=== PATIENT | female | born 1950 | race Caucasian/White ===

== ENCOUNTER 2017-01-08 11:05 | Inpatient (IN) | payer OTHER, MEDICAID ==
[~2017-01-08] VITALS: Ht 154.9 cm; Wt 65.8 kg
--- NOTE | 2017-01-08 11:05 | NUR ---
Arrived via BLS ambulance from SNF due to pulled GT.
[2017-01-08 11:09] VITALS: BP_SYST 151
--- NOTE | 2017-01-08 11:15 | NUR ---
ER at bedside examining patient.
--- NOTE | 2017-01-08 11:16 | NUR ---
Pt sent from evaluation and admission for GT placemnt.Pt had GT displaced approximately 1 wk ago. Pt rfused replacement at that time. Pt's family w/ consult from agreed to have GT replaced. Pt has no acute distress noted upon presentation to ED. Pt is nonverbal, answers yes or no questions appropriately.
[2017-01-08] MEDS ORDERED: NACL 0.9% 1,000 ML IV ONE (11:38)
[2017-01-08] MEDS ORDERED: VITA1CAP PO (11:44)
[2017-01-08] MEDS ORDERED: ONDA4TAB5 GT (11:44)
[2017-01-08] MEDS ORDERED: POTA40LI14 GT (11:44)
[2017-01-08] MEDS ORDERED: INSU100V32 SUBCUT (11:44)
[2017-01-08] MEDS ORDERED: LOPE2CAP PO (11:44)
[2017-01-08] MEDS ORDERED: CLOP75TA2 GT (11:44)
[2017-01-08] MEDS ORDERED: COLL100 PO (11:44)
[2017-01-08] MEDS ORDERED: MIDO5TAB20 PO (11:44)
[2017-01-08] MEDS ORDERED: MORP10SO SL (11:44)
[2017-01-08] MEDS ORDERED: LORA2VIA31 IM (11:44)
[2017-01-08] MEDS ORDERED: NITSL SL (11:44)
[2017-01-08] MEDS ORDERED: ACET325T53 GT (11:44)
[2017-01-08] MEDS ORDERED: IPRA3AMP9 INH (11:44)
[2017-01-08] MEDS ORDERED: FAMO20TA8 GT (11:44)
[2017-01-08] MEDS ORDERED: APIX5TAB GT (11:44)
--- NOTE | 2017-01-08 11:48 | NUR ---
Medication reconciliation completed based upon list provided by SNF.
--- NOTE | 2017-01-08 12:05 | NUR ---
Patient will be admitted to care of . Admitted to Med/Surg unit. Will go to room 110A. Belongings list completed. Summary report printed. Report will be given at bedside.
[2017-01-08 12:11] LABS: HEMATOCRIT 44.9 % (36-48); HEMOGLOBIN 14.1 g/dL (12.0-16.0); MEAN CORPUSCULAR HEMOGLOBIN 32 pg (27-31); MEAN CORPUSCULAR HGB CONC 31 % (32-36); MEAN CORPUSCULAR VOLUME 103 fL (79.0-98.0); PLATELET COUNT (AUTO) 99 K/uL (130-430); RED BLOOD CELL COUNT(AUTO) 4.38 MIL/uL (4.2-6.2); RED CELL DISTRIBUTION WIDTH 19.6 % (9.0-15.0)
[2017-01-08 12:21] LABS: WHITE BLOOD COUNT (AUTO) 3.6 K/uL (4.8-10.8)
--- NOTE | 2017-01-08 12:23 | NUR ---
ADMISSION NOTE Received patient from ER via [facility], received report from Antony ROCK. Patient admitted with diagnosis of acute dysphagia. Patient oriented to hospital routine, call light, toileting and safety-patient verbalized understanding.
[2017-01-08 12:31] LABS: ATYPICAL LYMPHOCYTES % 0 % (0-0); BAND % (MANUAL) 0 % (0-6); BASOPHILS % (MANUAL) 0 % (0-2); CALCIUM 8.8 mg/dL (8.4-11.0); EOSINOPHILS % (MANUAL) 2 % (0-7); LYMPHOCYTES % (MANUAL) 12 % (20-46); MONOCYTES % (MANUAL) 6 % (0-11); POTASSIUM 5.3 mmol/L (3.5-5.1)
[2017-01-08 12:35] VITALS: BP_SYST 124
[2017-01-08 12:35] LABS: ALBUMIN 3.8 g/dL (3.4-4.8); TOTAL BILIRUBIN 1.1 mg/dL (0.0-1.0); TOTAL PROTEIN, SERUM 8.1 g/dL (6.4-8.3)
[2017-01-08 12:43] LABS: CREATININE 10.06 mg/dL (0.55-1.30)
--- NOTE | 2017-01-08 13:00 | NUR ---
PATIENT IS AWAKE, ALERT AND ORIENTED. LEFT LEG PARALYSIS, LEFT ARM WEAKNESS. ABLE TO WEAKLY MOVE RIGHT LEG. PATIENT IS AWARE OF WHY SHE IS IN THE HOSPITAL. SPOKE W DR HSU AND ORDERS GIVEN FOR GI LAB PROCEDURE. LUNGS CLEAR, NO EDEMA, NO PRESSURE WOUNDS
--- NOTE | 2017-01-08 13:13 | NUR ---
GI CONSULT Spoke with Maryuri regarding request for consultation with Dr. Kaplan ([phone]) for reason: GT placement, acute dysphagia. Dr. Lopez is currently director validation.
[2017-01-08] MEDS: CLINDAMYCIN 600 MG in D5W 50 ML IV SCH ×3 (14:45→23:04)
--- NOTE | 2017-01-08 15:10 | NUR ---
PATIENT TAKEN TO GI LAB. TELEPHONE CONSENT OBTAINED FROM DAUGHTER WITH PRANAV SMALL.
[2017-01-08 15:17] LABS: INR 1.2 (0.8-1.2); PROTHROMBIN TIME 13.5 SECS (9.5-12.5)
[2017-01-08] MEDS ORDERED: MIDAZOLAM HCL 5 MG/5 ML VIAL ONE (15:21)
[2017-01-08] MEDS: fentaNYL CITRATE/PF 100 MCG/2 ML AMP ONE ×2 (17:29→17:33)
[2017-01-08] MEDS: MIDAZOLAM HCL 5 MG/5 ML VIAL ONE ×2 (17:31→17:35)
--- NOTE | 2017-01-08 18:25 | NUR ---
PATIENT IS STILL IN GI LAB. WILL GIVE REPORT TO VICTOR M ROCK
--- NOTE | 2017-01-08 18:31 | NUR ---
PT JUST RETURNED FROM GI LAB
[2017-01-08 20:25] VITALS: BP_SYST 143
--- NOTE | 2017-01-08 20:25 | NUR ---
INITIAL NOTES: PATIENT IN BED,RESTING QUITELY WITH EYES CLOSE. OPENS EYES WITH LOUD CALLING HER NAME. IVF INFUSING TKO, SITE CLEAR, AV SHUNT TO LEFT UPPER ARM WITH STRONG BRUIT /THRILL. VITAL SIGNS TAKEN ALL STABLE. CALL LIGHT WITHIN REACH. BED IN LOW POSITION. TURN ON BED ALARM. SIGN NO BP/BLOOD DRAW PLACED OVER HEADF WALL. WILL MONITOR CLOSELY. ABDOMINAL BINDER ON. NEW GT TUBE CLAMPED.
--- NOTE | 2017-01-08 22:30 | NUR ---
HYGIENE: BED BATH DONE. HELPS IN TURNING SLOWLY.FOLLOWS SIMPLE COMMANDS ,ANSWERS QUESTIONS BY NODDING HEAD . NEW PEG TUBE DRESSINGS WITH OLD BLOOD.GT TUBE CLAMPED. ABDOMINAL BINDER ON.PHOTO ON SKIN PROBLEM DONE. SEE CHART. SCRATCHING ABDOMEN AND PERINEAL AREAS.INSTRUCTED NOT TO.
[2017-01-09] VITALS (7 sets, daily range): BP systolic 111–148
--- NOTE | 2017-01-09 00:10 | NUR ---
ROUNDS: PATIENT RESTING WITH EYES CLOSE. MORE BLANKETS ADDED.
--- NOTE | 2017-01-09 02:00 | NUR ---
ROUNDS: TURNED TO SIDE. BINDER ON.
--- NOTE | 2017-01-09 02:20 | NUR ---
CALLED [facility] ABOUT WHAT TUBE FEEDING AND DIALYSIS SCHEDULE. SPOKE TO RONALD SAID HAD NEPHRO TUBE FEEDING BUT WAS DISCONTINUED,HEMODIALYSIS WAS DISCONTINUED WELL DUE TO CODE STATUS. PT. IS DNR BY GERARDO.
--- NOTE | 2017-01-09 03:00 | NUR ---
INCONTINENT OF LOOSE STOOL. GABO CARE DONE.
--- NOTE | 2017-01-09 05:30 | NUR ---
GABO CARE DONE DUE TO INCONTINENT OF STOOL.
[2017-01-09] MEDS: CLINDAMYCIN 600 MG in D5W 50 ML IV SCH ×3 (05:37→17:33)
--- NOTE | 2017-01-09 06:30 | NUR ---
CLOSING: BLOOD SUGAR CHECKED 140MM/DL. GT TUBE FEEDING DRESSING WITH OLD BLOOD STAIN. BINDER ON.ALL NEEDS WERE ATTENDED.APHASIC. NO ACUTE DISTRESS.
--- NOTE | 2017-01-09 07:00 | NUR ---
CALLED DIETARY FOR CONSULT ,SPOKE TO MARCOS SAID OUTSIDE CONTRACTOR SALES IS COMMING AT 0900HR. TOLD HER PATIENT NEED TO BE SEEN TO EVALUATE WHAT FEEDING TO START SINCE IT IS NEWLY PLACED G TUBE. SAID WILL INFORM STRAP STITCHER TO CALL OUTSIDE CONTRACTOR SALES COME EARLY
[2017-01-09 07:20] LABS: LYMPHOCYTES # (AUTO) 0.2 K/uL (1.0-5.5); MONOCYTES # (AUTO) 0.1 K/uL (0.0-1.0)
[2017-01-09 07:29] LABS: INR 1.3 (0.8-1.2); PROTHROMBIN TIME 14.6 SECS (9.5-12.5)
[2017-01-09 07:31] LABS: BASOPHILS % (AUTO) 0.3 % (0.0-2.0); HEMATOCRIT 44.6 % (36-48); LYMPHOCYTES % (AUTO) 4.1 % (20.5-51.5); MEAN CORPUSCULAR HEMOGLOBIN 33 pg (27-31); MEAN CORPUSCULAR HGB CONC 31 % (32-36); MEAN CORPUSCULAR VOLUME 105 fL (79.0-98.0); MONOCYTES % (AUTO) 2.8 % (1.7-9.3); NEUTROPHILS # (AUTO) 3.9 K/uL (1.8-7.7); NEUTROPHILS % (AUTO) 92.8 % (40.0-70.0); PLATELET COUNT (AUTO) 75 K/uL (130-430); RED BLOOD CELL COUNT(AUTO) 4.24 MIL/uL (4.2-6.2); RED CELL DISTRIBUTION WIDTH 20.3 % (9.0-15.0); WHITE BLOOD COUNT (AUTO) 4.2 K/uL (4.8-10.8)
[2017-01-09] MEDS ORDERED: ONDANSETRON HCL 4 MG/2 ML VIAL IVP PRN (08:45)
[2017-01-09] MEDS ORDERED: MAGNESIUM SULFATE 50 ML IV PRN (08:45)
[2017-01-09] MEDS ORDERED: ACETAMINOPHEN 325 MG TABLET GT PRN (08:45)
[2017-01-09] MEDS ORDERED: ZOLPIDEM TARTRATE 5 MG TABLET PO PRN (08:45)
[2017-01-09] MEDS ORDERED: LORazepam 2 MG/ML VIAL IVP PRN (08:45)
[2017-01-09] MEDS ORDERED: DOCUSATE SODIUM 100 MG CAPSULE PO PRN (08:45)
[2017-01-09] MEDS ORDERED: IPRATROPIUM/ALBUTEROL SULFATE 3 ML AMPUL.NEB INH PRN (08:45)
[2017-01-09] MEDS ORDERED: POTASSIUM CHLORIDE 10 MEQ TAB.PRT.SR PO PRN (08:45)
[2017-01-09] MEDS ORDERED: ACETAMINOPHEN 325 MG TABLET PO PRN (08:45)
[2017-01-09] MEDS ORDERED: MORPHINE 2 MG/ML INJ. SYRINGE IVP PRN (08:45)
[2017-01-09] MEDS ORDERED: DEXTROSE 50% JECT 50 ML DISP.SYRIN IVP PRN (08:45)
[2017-01-09] MEDS ORDERED: HEPARIN SODIUM,PORCINE 5000 UNITS/ML VIAL SUBCUT SCH (09:00)
--- NOTE | 2017-01-09 09:06 | NUR ---
Nutrition Update Vladimir Scale 11 noted. Pt admitted for dysphagia. Diet: N/A BMI: 27.8 kg/m2 RD to follow per nutrition care standards.
[2017-01-09] MEDS: METOCLOPRAMIDE HCL 10 MG/2 ML VIAL IVP SCH ×2 (09:19→17:00)
[2017-01-09] MEDS: PANTOPRAZOLE SODIUM 40 MG/VIAL (PROTONIX) IVP SCH (09:19)
[2017-01-09] MEDS: HYDROcodone/ACETAMIN 5-325 MG TAB (NORCO/ VICODIN) PO SCH ×3 (09:20→20:57)
--- NOTE | 2017-01-09 11:40 | NUR ---
Note: Went in with student to check blood sugars and found patient unresponsive. Vital signs wnl but patient would not react to name or stimuli. Blood sugar checked and it was 80. Oxygen was administered and Dr. Joe mckenzie. Charge nurse spoke to MD and told him the situation and he said to give a D50 push. orders were noted and carried out. Patient is a DNR so comfort measures only are to be followed.
[2017-01-09] MEDS ORDERED: DEXTROSE 50% JECT 50 ML DISP.SYRIN IVP ONE (12:00)
--- NOTE | 2017-01-09 12:00 | NUR ---
Blood Sugar recheck Current blood sugar after D50 push is 234. Patient is still not responsive. Will continue to monitor.
--- NOTE | 2017-01-09 14:00 | NUR ---
Note: Patient is resting in bed. Patient is still sleeping. Hard to arouse. vital signs are stable. Spoke with Valery, patients daughter, and they said that they wanted dialysis to continue again. Dr. Diaz was paged and informed. He ordered consult with marriage counselor minister. Call light in reach, bed in lowest position, and will continue to monitor.
--- NOTE | 2017-01-09 14:06 | NUR ---
NEPHROLOGY CONSULT Spoke with Leonora regarding request for consultation with Dr. Martinez ([phone]) for reason: renal failure. Dr. Thao is currently pulmonary physician.
--- NOTE | 2017-01-09 14:46 | NUR ---
Wound Care Wound care done with wound care nurse. Periarea has reddness, clean and apply barrier moisture cream to it. Saccrum also has redness, clean and apply barrier moisture. No open wounds. Right medial heel, callous and black but dry and not open. Barrier cream applied and left open to air.
--- NOTE | 2017-01-09 14:46 | NUR ---
WOUND EVALUATION: Wound Consult received from Dr. Diaz. Thank you, Dr. Diaz, for the consult. Patient received in a Johnny Bed with an IsoFlex JACQUI mattress, low air loss therapy was initiated. Patient was sleeping, arouses with some effort, nonverbal, nods to questions asked. Patient is unable to turn in bed independently. Vladimir Score is an 11. Past Medical History: Coronary Artery Disease, End-Stage Renal Disease, Diabetes Mellitus, and Chronic GI Upset Dialysis Dependent, End-Stage Renal Disease, Dysphagia, Diabetes Mellitus, Neuropathy, Nephropathy, Chronic Pain, and Anorexia. Recent Labs: WBC 4.2, RBC 4.24, Hemoglobin 14.0, Hematocrit 44.6, Patelets 75, Potassium 5.3, Chloride 94, BUN 11, Creatinine 10.06, GFR 4, POC Glucose 234, PT 14.6, INR 1.3. MRSA Screen in progress. Intrinsic factors that delay wound healing: Coronary Artery Disease, Diabetes Mellitus. Extrinsic factors that delay wound healing: Decreased mobility. Microbiology: Wound Assessment: 1) Right Medial Heel: Chronic pressure ulcer of prior unknown stage, present on admission. Wound bed is unseen, with 100% black tissue. No odor, no drainage, miguelito-wound callused. Measures 1.3 cm x 1.4 cm. Recommend: Cover involved area with foam dressing. Continue needed to monitor every shift. Elevate, offload and float bilateral heels with pillows lengthwise at all times. 2) Left Great Toe: Chronic wound with 100% black eschar, present on admission. No odor, no drainage. Dry, stable. Measures 0.7 cm x 0.7 cm. Recommend: No dressing needed. Continue to monitor site every shift. 3) Left Lateral Fifth Toe: Chronic wound with 100% black eschar, present on admission. No odor, no drainage. Dry, stable. Measures 0.8 cm x 0.7 cm. 4) Left Fifth Metatarsal Head, Lateral Aspect: Chronic wound with 100% black eschar, present on admission. No odor, no drainage. Measures 1.0 cm x 0.8 cm. 5) Left Lateral Ankle: Chronic wound, present on admission. Non-intact skin area has 100% pink tissue. No odor, no drainage. Measures 1.4 cm x 1.4 cm. Recommend: No dressing needed. Elevate, offload and float bilateral heels with pillows twice at all times. Continue to monitor sites every shift. 6) Perineal and Buttocks Areas: Redness from IAD, present on admission. No odor, no drainage. Recommend: Cleanse involved areas with mild soap and water. Pat dry. Apply moisture barrier cream to involved areas 4 times a day, and as needed for soiling. Also recommend: Reposition patient [id number] only every 2 hours with pillow support and off-load pressure areas with pillows for pressure re-distribution. Offload, elevate and float bilateral heels with pillows lengthwise at all times. Perform skin care and monitor skin integrity Q shift. Use moisture barrier cream on buttocks and other moisture susceptible areas QID and as needed for soiling. Maintain patient on a low air-loss mattress.
--- NOTE | 2017-01-09 15:20 | NUR ---
Dr. Keesha ALONSO in to see patient. Ordered dialysis. order printed and given to household manager.
--- NOTE | 2017-01-09 16:00 | NUR ---
Patient in dialysis
--- NOTE | 2017-01-09 16:10 | NUR ---
Nutrition Note Nutrition Consult (Vladimir score of 11) received 01/09/17 3309. Pt was seen and assessed by RD earlier today. Please refer to Nutrition Assessment for details. RD to continue to follow per nutrition care standards.
[2017-01-09] MEDS: INSULIN ASPART 100 UNITS/ML, 10 ML VIAL (NovoLOG) SUBCUT PRN (17:37)
--- NOTE | 2017-01-09 18:17 | NUR ---
Closing Note: Patient is resting comfortably in bed. No s/s of distress or sob. patient is awake. Patient is still in Dialysis. IV is patent. Low air mattress is on. Call light in reach, bed in lowest position, and will continue to monitor.
--- NOTE | 2017-01-09 18:50 | NUR ---
Dialysis Dialysis is done. 2 L removed. Blood pressure is stable. Patient tolerated well.
--- NOTE | 2017-01-09 20:00 | NUR ---
PM Shift Assessment Received patient lying in bed, opens eyes and nods but non-verbal. Assessment complete, vital signs sable. G-tube noted to abdomen, feeding infusing well, 40mL residual noted at this time, will monitor and increase to gaol rate per MD order. Abdominal binder noted to abdomen. IV noted to right hand, saline locked at this time, flushes well, no redness or swelling noted to IV site. Plan of care updated on board. Patient is not able to verbally make needs known. All fall and safety precautions in place, will continue to monitor closely for change in patient status.
--- NOTE | 2017-01-09 22:17 | NUR ---
RN Rounds Patient is resting quietly in bed, no acute distress noted. Blood sugar was assessed, no insulin provided per sliding scale. Patient was cleaned, repositioned with pillow support and made comfortable in bed. Tube feeding infusing well. All fall and safety precautions in place, will continue to monitor closely.
[2017-01-10] VITALS (7 sets, daily range): BP systolic 111–127
--- NOTE | 2017-01-10 00:24 | NUR ---
RN Rounds Patient is resting quietly in bed, no acute distress noted. Vital signs stable, no non-verbal signs of pain noted at this time. Scheduled IV antibiotics administered and infusing well. All safety precautions in place, will continue to monitor closely.
[2017-01-10] MEDS: CLINDAMYCIN 600 MG in D5W 50 ML IV SCH ×4 (00:37→18:34)
[2017-01-10] MEDS: METOCLOPRAMIDE HCL 10 MG/2 ML VIAL IVP SCH ×3 (00:37→17:00)
--- NOTE | 2017-01-10 02:35 | NUR ---
RN Rounds Patient noted to be dry heaving and had an episode of vomiting. She was cleaned, oral care provided, and made comfortable in bed with pillow support. Heels remain elevated on pillow. Tube feeding residual noted to be 5mL at this time. Head of bed is elevated. All safety precautions in place, will continue to monitor closely.
--- NOTE | 2017-01-10 04:33 | NUR ---
RN Rounds Patient is resting quietly in bed, no acute distress noted. Tube feeding was increased per MD order @0330, 5mL residual noted, now infusing at 40mL/hour, patient tolerating well. Patient was repositioned and made comfortable in bed. Heels remain elevated with pillow support. All safety precautions in place, will continue to monitor.
--- NOTE | 2017-01-10 07:13 | NUR ---
Closing Notes Patient is resting quietly in bed, no acute distress noted. Tolerating tube feeding well. Patient is stable, all needs met throughout shift. SBAR report was endorsed to AM nurse at bedside.
[2017-01-10 07:44] LABS: BASOPHILS % (AUTO) 0.4 % (0.0-2.0); EOSINOPHILS % (AUTO) 0.2 % (0.0-4.0); HEMATOCRIT 40.8 % (36-48); HEMOGLOBIN 13.1 g/dL (12.0-16.0); LYMPHOCYTES # (AUTO) 0.4 K/uL (1.0-5.5); LYMPHOCYTES % (AUTO) 8.6 % (20.5-51.5); MEAN CORPUSCULAR HEMOGLOBIN 34 pg (27-31); MEAN CORPUSCULAR HGB CONC 32 % (32-36); MEAN CORPUSCULAR VOLUME 105 fL (79.0-98.0); MONOCYTES # (AUTO) 0.5 K/uL (0.0-1.0); MONOCYTES % (AUTO) 11.3 % (1.7-9.3); NEUTROPHILS # (AUTO) 3.8 K/uL (1.8-7.7); NEUTROPHILS % (AUTO) 79.5 % (40.0-70.0); PLATELET COUNT (AUTO) 66 K/uL (130-430); RED CELL DISTRIBUTION WIDTH 19.5 % (9.0-15.0); WHITE BLOOD COUNT (AUTO) 4.7 K/uL (4.8-10.8)
[2017-01-10 08:03] LABS: CREATININE 5.99 mg/dL (0.55-1.30); POTASSIUM 3.1 mmol/L (3.5-5.1)
[2017-01-10] MEDS: HYDROcodone/ACETAMIN 5-325 MG TAB (NORCO/ VICODIN) PO SCH ×3 (09:00→21:52)
[2017-01-10] MEDS: PANTOPRAZOLE SODIUM 40 MG/VIAL (PROTONIX) IVP SCH (11:04)
--- NOTE | 2017-01-10 11:06 | NUR ---
Morning shift summary: patient reposition and assessment of skin. Doctor Joe jo. Will follow up with Doctor Martinez as requested by for dialysis order.
--- NOTE | 2017-01-10 13:35 | NUR ---
ROUNDS TO PATIENT. REPOSITIONING COMPLETE. PATIENT SAID A COMPLETE SENTENCE, "WILL YOU PLEASE COVER ME UP. "
[2017-01-10] MEDS ORDERED: POTASSIUM CHLORIDE 20 MEQ TAB.PRT.SR GT ONE (14:15)
--- NOTE | 2017-01-10 14:41 | NUR ---
PATIENT ROUNDS. GIVEN 20MEQ OF K ORDERED. CALL TO LAND SALES AGENT FOR DOCTOR JEAN. DOCTOR MARY PAGED PER [employer] HAND.
[2017-01-10] MEDS: INSULIN ASPART 100 UNITS/ML, 10 ML VIAL (NovoLOG) SUBCUT PRN (18:39)
--- NOTE | 2017-01-10 20:00 | NUR ---
PM Shift Assessment Received patient lying in bed, opens eyes and nods but does not answer questions. Assessment complete. G-tube noted to abdomen, feeding infusing well, 40mL/hr, 10mL residual noted at this time, rate was increased to 50mL/hr towards goal rate per MD order, will monitor for tolerance. Abdominal binder noted to abdomen. IV noted to right hand, saline locked at this time, flushes well, no redness or swelling noted to IV site. Patient was repositioned and made comfortable in bed, heels elevated with pillow support. Plan of care updated on board. Patient is not able to verbally make needs known. All fall and safety precautions in place, will continue to monitor closely for change in patient status.
--- NOTE | 2017-01-10 20:18 | NUR ---
Handoff report with noc nurse. Notified that patient has orders for dialysis and wash house worker aware. Patient residual and accucheck with tube feeding currently at 40ml/hour.
--- NOTE | 2017-01-10 22:21 | NUR ---
RN Rounds Patient is resting quietly in bed, no acute distress noted. Blood sugar was assessed, no insulin provided per sliding scale. Oral care provided for comfort. Tube feeding infusing well. All fall and safety precautions in place, will continue to monitor closely.
--- NOTE | 2017-01-11 00:10 | NUR ---
Transfer of Care Patient is resting quietly in bed, no acute distress noted. G-tube feeding infusing at 50mL/hr, endorsed to increase to goal rate per MD order. Patient is stable at this time, no non-verbal signs of pain or shortness of breath noted. SBAR report endorsed to RN.
--- NOTE | 2017-01-11 00:10 | NUR ---
NOTES: took over care from Bonnie, report given.
[2017-01-11] MEDS: CLINDAMYCIN 600 MG in D5W 50 ML IV SCH ×4 (00:38→17:28)
--- NOTE | 2017-01-11 00:45 | NUR ---
ROUNDS: pt. checked ,vomitted, mucus all over her mouth, face and chest. complete am care done with PRASANNA Deng. rechecked residual from g tube feeding less than 5 cc. IV site dressing changed, IV kept TKO. pt, incontinent of urine and stool, pericare done, some redness on perianal area, cream applied. O2 @ 2l/nc. pt. awake, slurred speech ,nods head when asked something, follows simple commands, noted weakness on left side. bruises on both upper extremities. left foot with toes amputated.continue g tube feed @ 50 ml/hr.
[2017-01-11] MEDS: METOCLOPRAMIDE HCL 10 MG/2 ML VIAL IVP SCH ×3 (01:04→16:35)
--- NOTE | 2017-01-11 03:00 | NUR ---
NOTES: pt. sleeping when checked. kept on semi fowlers position to prevent from vomiting. in no acute distress. on special mattress.
[2017-01-11 04:00] VITALS: BP_SYST 112
--- NOTE | 2017-01-11 06:00 | NUR ---
NOTES: pt. remain sleeping when checked. appears in no acute distress. IVF patent .
--- NOTE | 2017-01-11 06:45 | NUR ---
CLOSING NOTES: pt. unable to scan for blood sugar checked, will try later, off IV for blood draw. Av shunt on left arm with good bruit. G tube feed @ 40 ml/hr. for further care and observation.
--- NOTE | 2017-01-11 07:25 | NUR ---
endorsed pt. to incoming shift with nurse Field
[2017-01-11 07:31] LABS: EOSINOPHILS % (AUTO) 0.2 % (0.0-4.0); MONOCYTES # (AUTO) 0.4 K/uL (0.0-1.0)
[2017-01-11 07:36] LABS: BASOPHILS # (AUTO) 0.1 K/uL (0.0-0.2); BASOPHILS % (AUTO) 2.2 % (0.0-2.0); HEMATOCRIT 42.5 % (36-48); HEMOGLOBIN 13.5 g/dL (12.0-16.0); LYMPHOCYTES # (AUTO) 0.6 K/uL (1.0-5.5); LYMPHOCYTES % (AUTO) 9.2 % (20.5-51.5); MEAN CORPUSCULAR HEMOGLOBIN 33 pg (27-31); MEAN CORPUSCULAR HGB CONC 32 % (32-36); MEAN CORPUSCULAR VOLUME 105 fL (79.0-98.0); MONOCYTES % (AUTO) 6.3 % (1.7-9.3); NEUTROPHILS % (AUTO) 82.1 % (40.0-70.0); PLATELET COUNT (AUTO) 56 K/uL (130-430); RED BLOOD CELL COUNT(AUTO) 4.05 MIL/uL (4.2-6.2); RED CELL DISTRIBUTION WIDTH 19.5 % (9.0-15.0); WHITE BLOOD COUNT (AUTO) 6.1 K/uL (4.8-10.8)
[2017-01-11 07:40] LABS: CREATININE 6.93 mg/dL (0.55-1.30); POTASSIUM 4.3 mmol/L (3.5-5.1)
[2017-01-11] MEDS: INSULIN ASPART 100 UNITS/ML, 10 ML VIAL (NovoLOG) SUBCUT PRN ×2 (07:49→12:21)
--- NOTE | 2017-01-11 07:56 | NUR ---
Opening Note Report received form Christel MARY nurse. Patient is in stable condition currently resting in bed. Patient is awake. However is nonverbal. IV is on the right hand 22g currently saline locked. Current blood sugar is 169, covered with 2 units. G-tube is running Diabeticsource @40ml/hr. Patient is due for HD today. Will continue to monitor.
[2017-01-11 08:00] VITALS: BP_SYST 114
[2017-01-11] MEDS: PANTOPRAZOLE SODIUM 40 MG/VIAL (PROTONIX) IVP SCH (09:00)
[2017-01-11] MEDS: HYDROcodone/ACETAMIN 5-325 MG TAB (NORCO/ VICODIN) PO SCH ×3 (09:01→21:01)
--- NOTE | 2017-01-11 10:00 | NUR ---
Rounds Patient is currently resting in bed. No signs of distress noted.
--- NOTE | 2017-01-11 12:02 | NUR ---
Rounds Patient is currently receiving HD.
--- NOTE | 2017-01-11 12:17 | NUR ---
WOUND RE-EVALUATION: Patient received in a Davenport Bed with an IsoFlex JACQUI mattress, with low air loss therapy. Patient was sleeping, arouses with some effort, nonverbal, nods to questions asked. Patient is unable to turn in bed independently. Vladimir Score was a 16. MRSA Screen negative. Intrinsic factors that delay wound healing: Coronary Artery Disease, Diabetes Mellitus. Extrinsic factors that delay wound healing: Decreased mobility. Skin care performed by dayshift nurse. Assessment provided by PRANAV Field. Wound Assessment: 1) Right Medial Heel: Chronic pressure ulcer of prior unknown stage, present on admission. Wound bed is unseen, with 100% black tissue. No odor, no drainage, miguelito-wound callused. Recommend continue: Cover involved area with foam dressing. Continue needed to monitor every shift. Elevate, offload and float bilateral heels with pillows lengthwise at all times. 2) Left Great Toe: Chronic wound with 100% black eschar, present on admission. No odor, no drainage. Dry, stable. Recommend continue: No dressing needed. Continue to monitor site every shift. 3) Left Lateral Fifth Toe: Chronic wound with 100% black eschar, present on admission. No odor, no drainage. Dry, stable. 4) Left Fifth Metatarsal Head, Lateral Aspect: Chronic wound with 100% black eschar, present on admission. No odor, no drainage. 5) Left Lateral Ankle: Chronic wound, present on admission. Non-intact skin area has 100% pink tissue. No odor, no drainage. Recommend continue: No dressing needed. Elevate, offload and float bilateral heels with pillows twice at all times. Continue to monitor sites every shift. 6) Perineal and Buttocks Areas: Redness from IAD, present on admission. No odor, no drainage. Recommend continue: Cleanse involved areas with mild soap and water. Pat dry. Apply moisture barrier cream to involved areas 4 times a day, and as needed for soiling. Also recommend continue: Reposition patient [id number] only every 2 hours with pillow support and off-load pressure areas with pillows for pressure re-distribution. Offload, elevate and float bilateral heels with pillows lengthwise at all times. Perform skin care and monitor skin integrity Q shift. Use moisture barrier cream on buttocks and other moisture susceptible areas QID and as needed for soiling. Maintain patient on low air-loss therapy.
[2017-01-11 12:27] VITALS: BP_SYST 106
--- NOTE | 2017-01-11 12:38 | NUR ---
DISCHARGE PLANNING DC order back to SNF. Faxed SNF referral to [phone] [phone]. Meanwhile; Called [facility] [phone] spoke with Jo in admitting facility full no beds available. [facility] [phone] spoke who directed me to central office [phone], called spoke with Nely who stated facility has no computer terminal operator beds available at this time. [facility] [phone] spoke with Yesy No computer terminal operator beds available at this time. [facility] [phone] spoke with Diana no computer terminal operator beds available. Addendum: 01/11/17 at 1303 by Mariela OSULLIVAN Spoke with patient daughter Valery Carcamo [phone] who was made aware of attempts made to find SNF placement near [facility]. Valery understood and was agreeable with patient discharge back to [facility] today. Valery did not need to be called with time ambulance will be arranged. Spoke with Kaycee at [facility] patient assigned to room 11B RN to report [phone] bed available anytime. PRANAV Field made aware. Called [facility] [phone] spoke with Elizabeth arranged BLS transport belt picker 3-3:30pm. Placed transportation packet in nurses station. Addendum: 01/11/17 at 1402 by Mariela OSULLIVAN Plan to discharge back to [facility] tomorrow. Called [facility] ambulance placed BLS transport on will call. RN made aware.
--- NOTE | 2017-01-11 14:03 | NUR ---
Rounds Patient is currently sleeping in bed. No signs of distress noted.
--- NOTE | 2017-01-11 16:10 | NUR ---
Rounds patient is currently resting in bed. No signs of distress noted.
[2017-01-11 16:37] VITALS: BP_SYST 126
--- NOTE | 2017-01-11 18:43 | NUR ---
Closing Note Patient is resting in bed. G-tube is running Diabeticsource @ 40ml/hr. Iv is on the right hand 22g running NS@tko. Bed is in low position. Will give report to the oncoming nurse.
--- NOTE | 2017-01-11 19:45 | NUR ---
ROUNDS PATIENT RESTING COMFORTABLY IN BED, NOT IN DISTRESS, VITALS STABLE, NO SIGNS OF ANY [place] AND DISCOMFORT NOTED. ASSESSMENT DONE AND DOCUMENTED. SEE FLOWSHEET. NEEDS ATTENDED TO. REPOSITIONED AND MADE COMFORTABLE. SAFETY AND FALL PRECAUTION MEASURES IN PLACED. BED IN LOW AND LOCKED POSITION. CALL LIGHT PLACED WITHIN REACH.
[2017-01-11] MEDS: LACTOBACILLUS RHAMNOSUS GG 1 CAP CAPSULE PO SCH (20:59)
--- NOTE | 2017-01-11 21:00 | NUR ---
MEDICATION DUE MEDICATIONS GIVEN PER G TUBE, TOLERATED WELL. WILL CONTINUE TO MONITOR.
[2017-01-11 23:30] VITALS: BP_SYST 130
--- NOTE | 2017-01-12 | NUR ---
PATIENT RESTING: Patient resting quietly. No acute distress noted. Vital signs within normal range.
[2017-01-12] MEDS: METOCLOPRAMIDE HCL 10 MG/2 ML VIAL IVP SCH ×2 (01:00→09:21)
--- NOTE | 2017-01-12 02:15 | NUR ---
ROUNDS PATIENT ASLEEP, VITALS STABLE, WILL CONTINUE TO MONITOR.
[2017-01-12 03:48] VITALS: BP_SYST 115
--- NOTE | 2017-01-12 04:00 | NUR ---
PATIENT RESTING: Patient resting quietly. No acute distress noted. Vital signs within normal range.
[2017-01-12] MEDS: CLINDAMYCIN 600 MG in D5W 50 ML IV SCH ×2 (05:28→11:52)
--- NOTE | 2017-01-12 06:50 | NUR ---
CLOSING NOTES PATIENT AWAKE, NOT IN DISTRESS, VITALS STABLE. ALL NEEDS ATTENDED TO. SAFETY MEASURES MAINTAINED. BED IN LOW AND LOCKED POSITION. CALL LIGHT PLACED WITHIN REACH.
[2017-01-12 07:09] LABS: CALCIUM 8.6 mg/dL (8.4-11.0); CREATININE 4.42 mg/dL (0.55-1.30); POTASSIUM 3.9 mmol/L (3.5-5.1)
[2017-01-12 07:30] VITALS: BP_SYST 115
[2017-01-12 07:40] LABS: BASOPHILS % (AUTO) 0.5 % (0.0-2.0); EOSINOPHILS # (AUTO) 0.1 K/uL (0.0-0.4); EOSINOPHILS % (AUTO) 1.6 % (0.0-4.0); HEMATOCRIT 42.2 % (36-48); HEMOGLOBIN 13.3 g/dL (12.0-16.0); LYMPHOCYTES # (AUTO) 0.5 K/uL (1.0-5.5); LYMPHOCYTES % (AUTO) 7.6 % (20.5-51.5); MEAN CORPUSCULAR HEMOGLOBIN 33 pg (27-31); MEAN CORPUSCULAR HGB CONC 31 % (32-36); MEAN CORPUSCULAR VOLUME 106 fL (79.0-98.0); MONOCYTES # (AUTO) 0.4 K/uL (0.0-1.0); MONOCYTES % (AUTO) 5.7 % (1.7-9.3); NEUTROPHILS # (AUTO) 5.6 K/uL (1.8-7.7); NEUTROPHILS % (AUTO) 84.6 % (40.0-70.0); PLATELET COUNT (AUTO) 65 K/uL (130-430); RED BLOOD CELL COUNT(AUTO) 3.99 MIL/uL (4.2-6.2); RED CELL DISTRIBUTION WIDTH 18.9 % (9.0-15.0); WHITE BLOOD COUNT (AUTO) 6.6 K/uL (4.8-10.8)
--- NOTE | 2017-01-12 08:00 | NUR ---
Opening Note Report received from Anni ROCK. Patient is in stable condition and currently sleeping in bed. Iv is on the right hand currently running NS @ tko. G-tube is running Diabeticsource @40ml/hr. O2 is 93% on 2l via NC. Will continue to monitor.
[2017-01-12 08:07] VITALS: BP_SYST 104
[2017-01-12] MEDS: PANTOPRAZOLE SODIUM 40 MG/VIAL (PROTONIX) IVP SCH (09:19)
[2017-01-12] MEDS: LACTOBACILLUS RHAMNOSUS GG 1 CAP CAPSULE PO SCH (09:21)
[2017-01-12] MEDS: HYDROcodone/ACETAMIN 5-325 MG TAB (NORCO/ VICODIN) PO SCH (09:21)
--- NOTE | 2017-01-12 10:00 | NUR ---
Rounds Patient is resting in bed. No signs of distress noted.
[2017-01-12 10:34] VITALS: BP_SYST 104
[2017-01-12 11:29] VITALS: BP_SYST 105
[2017-01-12] MEDS: INSULIN ASPART 100 UNITS/ML, 10 ML VIAL (NovoLOG) SUBCUT PRN (12:08)
--- NOTE | 2017-01-12 12:30 | NUR ---
Rounds Patient is resting in bed. Condition is stable. Current blood sugar is 171. Covered with 2 unit of Novolog. Tolerating tube feedings well.
--- NOTE | 2017-01-12 13:01 | NUR ---
DC PLANNING: CALLED RISA-PRANAV CARDIOVASCULAR TECH AT [facility] TEL# [phone], PT WILL BE GOING TO ROOM 11 B. ARRANGED S TRANSPORTATION W/ [facility] TEL# [phone]. HAD TO CANCEL [facility] BECAUSE THEY DON'T HAVE AN AVAILABLE AMBULANCE BEFORE 1800. INFORMED NADEEN ROCK. FAMILY AWARE SINCE YESTERDAY AND AGREEABLE. PACKET AT THE NURSE'S STATION.
--- NOTE | 2017-01-12 13:34 | NUR ---
Report given Report given to Delaney ROCK at [facility]. Patient is going into room 11-B. Ambulance is scheduled for 1500.
--- NOTE | 2017-01-12 14:30 | NUR ---
Rounds Patient is in stable condition no signs of distress noted. Will continue to monitor.
[2017-01-12 15:30] VITALS: BP_SYST 121
--- NOTE | 2017-01-12 15:57 | NUR ---
Discharge Note Report given to paramedics. Patient is in stable condition. IV and ID band removed. G-tube was clamped. All scheduled medication were given to the patient. No signs of distress noted. Patient left the unit via gurney on O2 2l accompanied by paramedics.
[2017-01-15 03:06] LABS: HEPATITIS A AB, IgM Negative (Negative); HEPATITIS B CORE AB, IgM Negative (Negative); HEPATITIS B SURFACE AG Negative (Negative)
--- NOTE | 2017-01-16 16:13 | NUR ---
Faxed Hep Panel results to [facility] [phone]
== END 2017-01-12 16:15 | DRG 682 ==
LOC: SED 11:05 → SMU 11:45 → STU 12:58 → SMU 14:19
PROVIDERS: ADMIT General Practice; ATTEND General Practice
PROC: 3E0G76Z Introduction of Nutritional Substance into Upper GI, Via Natural or Artificial Opening (ICD-10-PCS; 2017-01-08)
PROC: 0DH63UZ Insertion of Feeding Device into Stomach, Percutaneous Approach (ICD-10-PCS; principal; 2017-01-08 17:30)
PROC: 5A1D60Z (ICD-10-PCS; 2017-01-09)
DX: I12.0 Hypertensive chronic kidney disease with stage 5 chronic kidney disease or end stage renal disease (principal); N17.0 Acute kidney failure with tubular necrosis; G93.41 Metabolic encephalopathy; N18.6 End stage renal disease; R13.10 Dysphagia, unspecified; Z66 Do not resuscitate; R62.7 Adult failure to thrive; E11.22 Type 2 diabetes mellitus with diabetic chronic kidney disease; K30 Functional dyspepsia; D63.1 Anemia in chronic kidney disease; E11.21 Type 2 diabetes mellitus with diabetic nephropathy; R63.0 Anorexia; E11.40 Type 2 diabetes mellitus with diabetic neuropathy, unspecified; I25.10 Atherosclerotic heart disease of native coronary artery without angina pectoris; D69.6 Thrombocytopenia, unspecified; G89.29 Other chronic pain; E87.5 Hyperkalemia; Z99.2 Dependence on renal dialysis; Z86.73 Personal history of transient ischemic attack (TIA), and cerebral infarction without residual deficits; Z88.1 Allergy status to other antibiotic agents; Z88.0 Allergy status to penicillin; Z79.899 Other long term (current) drug therapy; Z79.4 Long term (current) use of insulin; Z74.01 Bed confinement status
CPT/HCPCS: 36415; 43246; 71010; 80048; 80053; 80074; 82962; 83690-TC; 83735-TC; 85007; 85025; 85027; 85610-TC; 85730-TC; 87081; 90935; 90937; 94760; 99285; C9113; J2250; J2405; J2765; J3010; J3490; J7030; J7040; J7050; J7060